=== PATIENT | female | born 1965 | race Caucasian/White ===

== ENCOUNTER 2019-01-26 10:40 | Outpatient (CLI) | payer OTHER | END 2019-01-26 21:10 | disposition home or self-care (01) | LOC: SMI 10:40 | DX: M43.16 Spondylolisthesis, lumbar region (principal); M47.814 Spondylosis without myelopathy or radiculopathy, thoracic region; M48.061 Spinal stenosis, lumbar region without neurogenic claudication | CPT/HCPCS: 72148 ==